=== PATIENT | female | born 1950 | race Caucasian/White ===

== ENCOUNTER → 2022-05-31 | Outpatient (CLI) | payer MEDICARE, OTHER ==
[~2022-05-31] MED LIST: ALBU.083IS IH; ALBU90OI; Bystolic2.5 MG; FEXO180 PO; HYDCHL25; HYDMOR2 PO; KETO10 PO; LEVSOD75 PO; LOSA50; METF500; PRAV10 PO; PRED20 PO; PROM25 PO; RXHYDMOR2 PO; TAMS.4ER PO; VALA500
[2022-05-31 08:45] LABS: BASOPHILS ABSOLUTE AUTO 0.04 K/mm3 (0.00-0.23); BASOPHILS PERCENT AUTO 1 % (0-2); EOSINOPHILS ABSOLUTE AUTO 0.05 K/mm3 (0.00-0.68); EOSINOPHILS PERCENT AUTO 1 % (0-6); Hematocrit 42.5 % (33.0-51.0); Hemoglobin 14.4 g/dL (11.5-16.0); IMMATURE GRAN ABSOLUTE AUTO 0.03 K/mm3 (0.00-0.10); IMMATURE GRAN PERCENT AUTO 1 % (0-1); LYMPHOCYTES PERCENT AUTO 15 % (21-46); MONOCYTES ABSOLUTE AUTO 0.73 K/mm3 (0.16-1.47); MONOCYTES PERCENT AUTO 12 % (4-13); Mean Corpuscular HGB Conc 33.9 g/dL (31.5-36.5); Mean Corpuscular Volume 86 fL (80-100); Mean Platelet Volume 9.8 fL (9.1-12.4); NEUTROPHILS ABSOLUTE AUTO 4.39 K/mm3 (1.96-9.15); NEUTROPHILS PERCENT AUTO 71 % (41-73); Platelet Count 288 K/mm3 (150-400); RDW Coefficient Variation 12.8 % (11.7-14.2); RDW Standard Deviation 40.4 fL (35.1-46.3); Red Blood Cell Count 4.96 M/mm3 (3.80-5.20); White Blood Cell Count 6.14 K/mm3 (4.00-11.30)
[2022-05-31 08:50] LABS: Bun/Creatinine Ratio 23.2 (12.0-20.0); Calcium, Blood 8.7 mg/dL (8.5-10.1); Creatinine, Blood 0.82 mg/dL (0.40-1.00); Potassium, Blood 3.7 mmol/L (3.5-5.5)
== END | disposition home or self-care (01) ==
LOC: LAB SHORT 08:41 → LAB 08:41
PROVIDERS: Physician Assistant Surgical
DX: R05.9 Cough, unspecified (principal)
CPT/HCPCS: 80048; 85025

== ENCOUNTER 2022-12-30 11:25 | Observation (INO) | payer MEDICARE, OTHER ==
[2022-12-30] VITALS (24 sets, daily range): BP systolic 120–179; BP diastolic 39–71
[~2022-12-30] VITALS: Ht 157.5 cm; Wt 110.7 kg
[~2022-12-30 11:25] MED LIST changes: -Bystolic2.5 MG; +Bystolic2.5 MG PO; -HYDCHL25; +HYDCHL25 PO; +LEVSOD100 PO; -LEVSOD75 PO; -LOSA50; +LOSA50 PO
[2022-12-30 12:00] LABS: BASOPHILS ABSOLUTE AUTO 0.05 K/mm3 (0.00-0.23); BASOPHILS PERCENT AUTO 1 % (0-2); EOSINOPHILS ABSOLUTE AUTO 0.13 K/mm3 (0.00-0.68); EOSINOPHILS PERCENT AUTO 2 % (0-6); Hematocrit 44.1 % (33.0-51.0); Hemoglobin 14.5 g/dL (11.5-16.0); IMMATURE GRAN ABSOLUTE AUTO 0.03 K/mm3 (0.00-0.10); IMMATURE GRAN PERCENT AUTO 0 % (0-1); LYMPHOCYTES ABSOLUTE AUTO 1.89 K/mm3 (0.84-5.20); LYMPHOCYTES PERCENT AUTO 22 % (21-46); MONOCYTES ABSOLUTE AUTO 0.69 K/mm3 (0.16-1.47); MONOCYTES PERCENT AUTO 8 % (4-13); Mean Corpuscular HGB 29.1 pg (26.0-34.0); Mean Corpuscular HGB Conc 32.9 g/dL (31.5-36.5); Mean Corpuscular Volume 89 fL (80-100); Mean Platelet Volume 10.3 fL (9.1-12.4); NEUTROPHILS ABSOLUTE AUTO 5.75 K/mm3 (1.96-9.15); NEUTROPHILS PERCENT AUTO 67 % (41-73); Platelet Count 339 K/mm3 (150-400); RDW Coefficient Variation 13.1 % (11.7-14.2); RDW Standard Deviation 42.6 fL (35.1-46.3); Red Blood Cell Count 4.98 M/mm3 (3.80-5.20); White Blood Cell Count 8.54 K/mm3 (4.00-11.30)
[2022-12-30 12:16] LABS: Albumin, Blood 3.4 g/dL (3.4-5.0); Albumin/Globulin Ratio 0.8 (0.8-1.8); Bilirubin, Total 0.5 mg/dL (0.1-1.0); Bun/Creatinine Ratio 14.8 (12.0-20.0); Calcium, Blood 8.9 mg/dL (8.5-10.1); Creatinine, Blood 0.81 mg/dL (0.40-1.00); Globulin, Blood 4.4 g/dL (2.2-4.0); Total Protein, Blood 7.8 g/dL (6.4-8.2)
[2022-12-30] MEDS ORDERED: ACYC400 PO (14:19)
[2022-12-30] MEDS ORDERED: ALBU90OI6 INH (14:19)
[2022-12-30] MEDS ORDERED: AIRBORNE ELDER1 EACH PO (14:20)
[2022-12-30] MEDS ORDERED: DERMACINRX FOL1 EAC2 PO (14:20)
[2022-12-30] MEDS ORDERED: UBID10 PO (14:20)
[2022-12-30] MEDS ORDERED: CLOP75 PO (14:21)
[2022-12-30] MEDS ORDERED: EZET10 PO (14:21)
--- NOTE | 2022-12-30 19:21 | NUR ---
pt arrived to floor at aprox [id number] from pacu. lap sites x's 5 with dermabond c/d/i. pt c/o nausea, medicated with 4mg zofran. pt denies pain at time of arrival
[2022-12-31 01:12] VITALS: BP 151/66
[2022-12-31 03:17] VITALS: BP 139/60
--- NOTE | 2022-12-31 04:34 | NUR ---
SHIFT SUMMARY S/P LAP ILDA. PT NAUSEATED T/O THE NIGHT. ZOFRAN/REGLAN GIVEN PER ORDERS. PT ONLY ABLE TO TOLERATE VERY SMALL AMOUNT OF ICE CHIPS AND 1-2 BITES OF JELLO. IVF INFUSING PER ORDERS. PT ABLE TO WALK INDEPENDENTLY TO RESTROOM TO VOID. LAP SITES TO ABD REMAIN CDI. TYLENOL FOR PAIN MANAGEMENT. NO EMESIS NOTED AT THIS TIME. PT USES CALL LIGHT APPROPRIATELY.
[2022-12-31 06:53] LABS: BASOPHILS ABSOLUTE AUTO 0.02 K/mm3 (0.00-0.23); BASOPHILS PERCENT AUTO 0 % (0-2); EOSINOPHILS PERCENT AUTO 0 % (0-6); Hematocrit 41.8 % (33.0-51.0); Hemoglobin 14.1 g/dL (11.5-16.0); IMMATURE GRAN ABSOLUTE AUTO 0.08 K/mm3 (0.00-0.10); IMMATURE GRAN PERCENT AUTO 1 % (0-1); LYMPHOCYTES ABSOLUTE AUTO 0.82 K/mm3 (0.84-5.20); LYMPHOCYTES PERCENT AUTO 6 % (21-46); MONOCYTES ABSOLUTE AUTO 0.53 K/mm3 (0.16-1.47); MONOCYTES PERCENT AUTO 4 % (4-13); Mean Corpuscular HGB 29.2 pg (26.0-34.0); Mean Corpuscular HGB Conc 33.7 g/dL (31.5-36.5); Mean Corpuscular Volume 87 fL (80-100); Mean Platelet Volume 10.5 fL (9.1-12.4); NEUTROPHILS ABSOLUTE AUTO 11.57 K/mm3 (1.96-9.15); NEUTROPHILS PERCENT AUTO 89 % (41-73); Platelet Count 271 K/mm3 (150-400); RDW Coefficient Variation 13.1 % (11.7-14.2); Red Blood Cell Count 4.83 M/mm3 (3.80-5.20); White Blood Cell Count 13.02 K/mm3 (4.00-11.30)
[2022-12-31 07:20] LABS: Albumin, Blood 3.2 g/dL (3.4-5.0); Albumin/Globulin Ratio 0.8 (0.8-1.8); Bilirubin, Total 0.4 mg/dL (0.1-1.0); Bun/Creatinine Ratio 17.6 (12.0-20.0); Calcium, Blood 8.3 mg/dL (8.5-10.1); Creatinine, Blood 0.8 mg/dL (0.40-1.00); Potassium, Blood 4.3 mmol/L (3.5-5.5); Total Protein, Blood 7.2 g/dL (6.4-8.2)
[2022-12-31 07:29] VITALS: BP 151/70
[2022-12-31] MEDS ORDERED: DOCU100 PO (13:42)
[2022-12-31] MEDS ORDERED: PROM25 PO (13:42)
[2022-12-31] MEDS ORDERED: ACET500 PO (13:42)
--- NOTE | 2022-12-31 14:33 | NUR ---
DISCHARGE SUMMARY POD1 LAP ILDA, Akila/OX4, VSS, TOLERATING PO, SOME NAUSEA THIS AM BUT HAS IMPROVED WITH PHENERGAN, PAIN WELL MANAGED PER PATIENT. IV ACCESS REMOVED PRIOR TO DC. DISCUSSED DISCHARGE INFORMATION WITH HER INCLUDING HOME CARE, MEDICATIONS AND FOLLOW APPOINTMENTS. NO QUESTIONS AT TIME OF DISCHARGE, ESCORTED OUT VIA WC TO PRIVATE AUTO TO GO HOME.
== END 2022-12-31 14:35 | disposition home or self-care (01) ==
LOC: ER 11:25 → SURS 11:26 → ER 13:00 → SURS 19:27
PROVIDERS: Family Medicine; Physician Assistant; Surgery; ADMIT Family Medicine
PROC: 0FT44ZZ Resection of Gallbladder, Percutaneous Endoscopic Approach (ICD-10-PCS; principal; 2022-12-30 15:00)
DX: K80.12 Calculus of gallbladder with acute and chronic cholecystitis without obstruction (principal); I10 Essential (primary) hypertension; J45.909 Unspecified asthma, uncomplicated; E78.5 Hyperlipidemia, unspecified; E03.9 Hypothyroidism, unspecified; G47.30 Sleep apnea, unspecified; E11.42 Type 2 diabetes mellitus with diabetic polyneuropathy; E66.01 Morbid (severe) obesity due to excess calories; K76.0 Fatty (change of) liver, not elsewhere classified; K42.9 Umbilical hernia without obstruction or gangrene; Z68.41 Body mass index [BMI] 40.0-44.9, adult
CPT/HCPCS: 36415; 74177; 76705; 80053; 82947; 83690; 85025; 88304; 93005; 93010; 99285-25; A9270; G0378; J0690; J1100; J1170; J2250; J2371; J2405; J2704; J2765; J3010; J7030; J7120; Q9967

== ENCOUNTER 2023-01-11 00:19 | Emergency (ER) | payer MEDICARE, OTHER ==
[~2023-01-11] VITALS: Ht 154.9 cm; Wt 109.8 kg
[~2023-01-11 00:19] MED LIST changes: +ACET500 PO; +ACYC400 PO; +AIRBORNE ELDER1 EACH PO; +ALBU90OI6 INH; +CLOP75 PO; +DERMACINRX FOL1 EAC2 PO; +DOCU100 PO; +EZET10 PO; +UBID10 PO
[2023-01-11 00:56] LABS: BASOPHILS ABSOLUTE AUTO 0.06 K/mm3 (0.00-0.23); BASOPHILS PERCENT AUTO 1 % (0-2); EOSINOPHILS ABSOLUTE AUTO 0.27 K/mm3 (0.00-0.68); EOSINOPHILS PERCENT AUTO 2 % (0-6); Hematocrit 42.7 % (33.0-51.0); Hemoglobin 14.2 g/dL (11.5-16.0); IMMATURE GRAN PERCENT AUTO 1 % (0-1); LYMPHOCYTES ABSOLUTE AUTO 2.66 K/mm3 (0.84-5.20); LYMPHOCYTES PERCENT AUTO 23 % (21-46); MONOCYTES ABSOLUTE AUTO 0.97 K/mm3 (0.16-1.47); MONOCYTES PERCENT AUTO 8 % (4-13); Mean Corpuscular HGB 29.5 pg (26.0-34.0); Mean Corpuscular HGB Conc 33.3 g/dL (31.5-36.5); Mean Corpuscular Volume 89 fL (80-100); Mean Platelet Volume 10.4 fL (9.1-12.4); NEUTROPHILS ABSOLUTE AUTO 7.57 K/mm3 (1.96-9.15); NEUTROPHILS PERCENT AUTO 65 % (41-73); Platelet Count 398 K/mm3 (150-400); RDW Standard Deviation 42.3 fL (35.1-46.3); Red Blood Cell Count 4.81 M/mm3 (3.80-5.20); White Blood Cell Count 11.63 K/mm3 (4.00-11.30)
[2023-01-11 01:31] LABS: Albumin, Blood 2.7 g/dL (3.4-5.0); Albumin/Globulin Ratio 0.7 (0.8-1.8); Bilirubin, Total 0.4 mg/dL (0.1-1.0); Calcium, Blood 8.3 mg/dL (8.5-10.1); Creatinine, Blood 0.72 mg/dL (0.40-1.00); Potassium, Blood 4.1 mmol/L (3.5-5.5); Total Protein, Blood 6.7 g/dL (6.4-8.2)
[2023-01-11] MEDS ORDERED: ACYC400 PO (03:06)
[2023-01-11] MEDS ORDERED: BENADRYL25 MG PO (03:07)
[2023-01-11] MEDS ORDERED: TRIA15CR3 TOP (03:07)
[2023-01-11 03:30] VITALS: BP 140/59
== END 2023-01-11 04:35 | disposition home or self-care (01) ==
LOC: ER 00:19
PROVIDERS: Emergency Medicine
DX: G89.18 Other acute postprocedural pain (principal); R10.13 Epigastric pain; Z88.5 Allergy status to narcotic agent; Z88.1 Allergy status to other antibiotic agents; Z79.899 Other long term (current) drug therapy; Z79.84 Long term (current) use of oral hypoglycemic drugs; I10 Essential (primary) hypertension; E11.9 Type 2 diabetes mellitus without complications; J45.909 Unspecified asthma, uncomplicated
CPT/HCPCS: 74177; 80053; 83690; 85025; 93005; 93010; 99284-25; J2270; J2405; Q9967

== ENCOUNTER 2023-01-14 14:50 | Inpatient (IN) | payer MEDICARE, OTHER ==
[~2023-01-14] VITALS: Ht 152.4 cm; Wt 109.8 kg
[~2023-01-14 14:50] MED LIST changes: +BENADRYL25 MG PO; +TRIA15CR3 TOP
[2023-01-14 15:58] LABS: BASOPHILS ABSOLUTE AUTO 0.06 K/mm3 (0.00-0.23); BASOPHILS PERCENT AUTO 1 % (0-2); EOSINOPHILS ABSOLUTE AUTO 0.13 K/mm3 (0.00-0.68); EOSINOPHILS PERCENT AUTO 1 % (0-6); Hemoglobin 14.3 g/dL (11.5-16.0); IMMATURE GRAN PERCENT AUTO 1 % (0-1); LYMPHOCYTES ABSOLUTE AUTO 1.07 K/mm3 (0.84-5.20); LYMPHOCYTES PERCENT AUTO 8 % (21-46); MONOCYTES ABSOLUTE AUTO 1.04 K/mm3 (0.16-1.47); MONOCYTES PERCENT AUTO 8 % (4-13); Mean Corpuscular HGB 28.9 pg (26.0-34.0); Mean Corpuscular HGB Conc 33.3 g/dL (31.5-36.5); Mean Corpuscular Volume 87 fL (80-100); Mean Platelet Volume 9.9 fL (9.1-12.4); NEUTROPHILS ABSOLUTE AUTO 10.27 K/mm3 (1.96-9.15); NEUTROPHILS PERCENT AUTO 81 % (41-73); Platelet Count 397 K/mm3 (150-400); RDW Coefficient Variation 13.3 % (11.7-14.2); Red Blood Cell Count 4.95 M/mm3 (3.80-5.20); White Blood Cell Count 12.67 K/mm3 (4.00-11.30)
[2023-01-14 16:18] LABS: Magnesium, Blood 2.1 mg/dL (1.6-2.4)
[2023-01-14 16:21] LABS: Albumin, Blood 3.4 g/dL (3.4-5.0); Albumin/Globulin Ratio 0.8 (0.8-1.8); Bilirubin, Total 5.1 mg/dL (0.1-1.0); Bun/Creatinine Ratio 16.5 (12.0-20.0); Calcium, Blood 9.1 mg/dL (8.5-10.1); Creatinine, Blood 0.79 mg/dL (0.40-1.00); Globulin, Blood 4.3 g/dL (2.2-4.0); Potassium, Blood 3.5 mmol/L (3.5-5.5); Total Protein, Blood 7.7 g/dL (6.4-8.2)
[2023-01-15 02:42] VITALS: BP 139/66
[2023-01-15 04:56] LABS: BASOPHILS ABSOLUTE AUTO 0.05 K/mm3 (0.00-0.23); BASOPHILS PERCENT AUTO 1 % (0-2); EOSINOPHILS ABSOLUTE AUTO 0.39 K/mm3 (0.00-0.68); EOSINOPHILS PERCENT AUTO 4 % (0-6); Hematocrit 38.7 % (33.0-51.0); Hemoglobin 12.6 g/dL (11.5-16.0); IMMATURE GRAN ABSOLUTE AUTO 0.09 K/mm3 (0.00-0.10); IMMATURE GRAN PERCENT AUTO 1 % (0-1); LYMPHOCYTES ABSOLUTE AUTO 1.58 K/mm3 (0.84-5.20); LYMPHOCYTES PERCENT AUTO 18 % (21-46); MONOCYTES PERCENT AUTO 10 % (4-13); Mean Corpuscular HGB 28.8 pg (26.0-34.0); Mean Corpuscular HGB Conc 32.6 g/dL (31.5-36.5); Mean Corpuscular Volume 89 fL (80-100); Mean Platelet Volume 10.1 fL (9.1-12.4); NEUTROPHILS ABSOLUTE AUTO 5.84 K/mm3 (1.96-9.15); NEUTROPHILS PERCENT AUTO 66 % (41-73); Platelet Count 324 K/mm3 (150-400); RDW Coefficient Variation 13.6 % (11.7-14.2); RDW Standard Deviation 44.1 fL (35.1-46.3); Red Blood Cell Count 4.37 M/mm3 (3.80-5.20); White Blood Cell Count 8.85 K/mm3 (4.00-11.30)
[2023-01-15 05:06] VITALS: BP 129/84
[2023-01-15 05:25] LABS: Albumin, Blood 2.7 g/dL (3.4-5.0); Albumin/Globulin Ratio 0.7 (0.8-1.8); Bilirubin, Total 4.3 mg/dL (0.1-1.0); Bun/Creatinine Ratio 16.2 (12.0-20.0); Calcium, Blood 8.4 mg/dL (8.5-10.1); Creatinine, Blood 1.05 mg/dL (0.40-1.00); Globulin, Blood 3.9 g/dL (2.2-4.0); Potassium, Blood 3.3 mmol/L (3.5-5.5); Total Protein, Blood 6.6 g/dL (6.4-8.2)
--- NOTE | 2023-01-15 06:08 | NUR ---
Shift Summary Pt admitted from ER with acute pancreatitis and possible billary obstruction. While on this unit pt states she has very little pain and very mild nausea, she has not requested medication for either. She is AOx4, independent in the room, cooperative. She has DM2 and has not eaten since 1800 on 01/13. She has DM2, I took her blood sugar at 0300 and it was 84. She is rcving NS @ 75 and got one dose of IV Rocephin on the floor. She slept well t/o the night.
[2023-01-15 08:10] VITALS: BP 136/59
--- NOTE | 2023-01-15 17:24 | NUR ---
SHIFT SUMMARY PATIENT INDEPENDENT IN THE ROOM. PATIENT CONTINUES TO HAVE ABDOMINAL PAIN/CRAMPING ESPECIALLY AFTER SHE EATS OR DRINKS ANYTHING. PATIENT WENT TO MRI FOR SCAN. IV POTASSIUM GIVEN. PO POTASSIUM CANCELLED BECAUSE OF CONTINUED NAUSEA AND PAIN. PATIENT MEDICATED FOR NAUSEA AND PAIN PER MAR. ABD SURGICAL INCISIONS HEALING. EDUCATION PROVIDED RELATED TO DIET, AND NON PHARMACOLOGICAL ITEMS FOR PAIN.
[2023-01-15 19:16] VITALS: BP 153/62
--- NOTE | 2023-01-16 04:21 | NUR ---
SHIFT SUMMARY; NO ACUTE CHANGES OVERNIGHT. THE PT IS AXO X4 AND INDEPENDENT IN THE ROOM. THE PT HAS BEEN RESTING IN BED FOR THE DURATION OF THE NIGHT. THE PT DENIES ANY SOB, CHEST PAIN/PRESSURE, N/V AND OR PAIN. PT ATE 2 JELLOS W/ OUT ANY NAUSEA. TOLERATED WELL. TELE IS IN PLACE SINUS TAMERA IN THE 50'S. CURRENTLY THE PT IS SLEEPING IN BED WITH THE BED IN THE LOWEST POSITION AND THE CALL LIGHT AT BEDSIDE. FIRE EDUCATION PROVIDED AND IGNITION RISK ASSESSED.
[2023-01-16 04:39] VITALS: BP 181/70
[2023-01-16 05:27] VITALS: BP 158/94
[2023-01-16 05:31] LABS: BASOPHILS ABSOLUTE AUTO 0.05 K/mm3 (0.00-0.23); BASOPHILS PERCENT AUTO 1 % (0-2); EOSINOPHILS ABSOLUTE AUTO 0.44 K/mm3 (0.00-0.68); EOSINOPHILS PERCENT AUTO 6 % (0-6); Hematocrit 36.2 % (33.0-51.0); IMMATURE GRAN ABSOLUTE AUTO 0.06 K/mm3 (0.00-0.10); IMMATURE GRAN PERCENT AUTO 1 % (0-1); LYMPHOCYTES ABSOLUTE AUTO 1.43 K/mm3 (0.84-5.20); LYMPHOCYTES PERCENT AUTO 19 % (21-46); MONOCYTES ABSOLUTE AUTO 0.79 K/mm3 (0.16-1.47); MONOCYTES PERCENT AUTO 10 % (4-13); Mean Corpuscular HGB 29.8 pg (26.0-34.0); Mean Corpuscular HGB Conc 33.1 g/dL (31.5-36.5); Mean Corpuscular Volume 90 fL (80-100); Mean Platelet Volume 10.2 fL (9.1-12.4); NEUTROPHILS ABSOLUTE AUTO 4.94 K/mm3 (1.96-9.15); NEUTROPHILS PERCENT AUTO 64 % (41-73); Platelet Count 295 K/mm3 (150-400); RDW Coefficient Variation 13.8 % (11.7-14.2); RDW Standard Deviation 45.3 fL (35.1-46.3); Red Blood Cell Count 4.03 M/mm3 (3.80-5.20); White Blood Cell Count 7.71 K/mm3 (4.00-11.30)
[2023-01-16 06:00] LABS: Albumin, Blood 2.6 g/dL (3.4-5.0); Albumin/Globulin Ratio 0.7 (0.8-1.8); Bilirubin, Total 1.1 mg/dL (0.1-1.0); Bun/Creatinine Ratio 17.9 (12.0-20.0); Calcium, Blood 7.9 mg/dL (8.5-10.1); Creatinine, Blood 0.95 mg/dL (0.40-1.00); Globulin, Blood 3.8 g/dL (2.2-4.0); Potassium, Blood 3.8 mmol/L (3.5-5.5); Total Protein, Blood 6.4 g/dL (6.4-8.2)
[2023-01-16 07:42] VITALS: BP 184/73
[2023-01-16 16:07] VITALS: BP 146/62
--- NOTE | 2023-01-16 16:47 | NUR ---
SHIFT SUMMARY PATIENT CONTINUES TO HAVE EPISODES OF SPASMS AND BLOATING WITH EATING AND DRINKING. PATIENT STATES SPASMS GREATLY IMPROVED FROM YESTERDAY. PATIENT USING HEATING PAD FOR COMFORT. PATIENT ADVANCED TO FULL LIQUID DIET AND EATING SMALL AMOUNTS AT A TIME. PATIENT RELUCTANT TO TAKE PAIN MEDICATION INCLUDING TORADOL TODAY. PATIENT INDEPENDENT IN THE ROOM. PATIENT HAD A SMALL SEMI FORMED BROWN BOWEL MOVEMENT. IV FLUIDS OFF AT THIS TIME AND PATIENT INCOURAGED TO DRINK FLUIDS.
[2023-01-16 19:15] VITALS: BP 138/61
[2023-01-17 04:27] VITALS: BP 169/64
--- NOTE | 2023-01-17 04:36 | NUR ---
SHIFT SUMMARY; NO ACUTE CHANGES OVERNIGHT. THE PT IS AXO X4 AND INDEPENDENT IN THE ROOM. THE PT HAS BEEN SLEEPING FOR THE MAJORITY OF THE NIGHT. THE PT HAS NOT ENDORSED ANY ABDOMINAL PAIN THIS EVENING, SHE DOES HOWEVER ENDORSE ABD DISCOMFORT THAT WAXES AND WANES. THE PT DENIES ANYS SOB, CHEST PAIN/PRESSURE, N/V AND PAIN THIS EVENING. CURRENTLY THE PT IS SLEEPING IN BED WITH THE BED IN THE LOWEST POSITION AND THE CALL LIGHT AT BEDSIDE. FIRE SAFETY ROUNDS COMPLETED.
[2023-01-17 04:57] LABS: BASOPHILS ABSOLUTE AUTO 0.07 K/mm3 (0.00-0.23); BASOPHILS PERCENT AUTO 1 % (0-2); EOSINOPHILS ABSOLUTE AUTO 0.41 K/mm3 (0.00-0.68); EOSINOPHILS PERCENT AUTO 5 % (0-6); Hematocrit 37.7 % (33.0-51.0); Hemoglobin 12.4 g/dL (11.5-16.0); IMMATURE GRAN ABSOLUTE AUTO 0.07 K/mm3 (0.00-0.10); IMMATURE GRAN PERCENT AUTO 1 % (0-1); LYMPHOCYTES ABSOLUTE AUTO 1.53 K/mm3 (0.84-5.20); LYMPHOCYTES PERCENT AUTO 19 % (21-46); MONOCYTES PERCENT AUTO 9 % (4-13); Mean Corpuscular HGB 29.2 pg (26.0-34.0); Mean Corpuscular HGB Conc 32.9 g/dL (31.5-36.5); Mean Corpuscular Volume 89 fL (80-100); Mean Platelet Volume 10.1 fL (9.1-12.4); NEUTROPHILS ABSOLUTE AUTO 5.13 K/mm3 (1.96-9.15); NEUTROPHILS PERCENT AUTO 65 % (41-73); Platelet Count 314 K/mm3 (150-400); RDW Coefficient Variation 13.6 % (11.7-14.2); RDW Standard Deviation 44.1 fL (35.1-46.3); Red Blood Cell Count 4.25 M/mm3 (3.80-5.20); White Blood Cell Count 7.91 K/mm3 (4.00-11.30)
[2023-01-17 05:35] LABS: Albumin, Blood 2.8 g/dL (3.4-5.0); Albumin/Globulin Ratio 0.8 (0.8-1.8); Bilirubin, Total 0.9 mg/dL (0.1-1.0); Bun/Creatinine Ratio 14.5 (12.0-20.0); Calcium, Blood 8.8 mg/dL (8.5-10.1); Creatinine, Blood 0.76 mg/dL (0.40-1.00); Globulin, Blood 3.7 g/dL (2.2-4.0); Potassium, Blood 3.8 mmol/L (3.5-5.5); Total Protein, Blood 6.5 g/dL (6.4-8.2)
[2023-01-17 08:09] VITALS: BP 175/68
[2023-01-17] MEDS ORDERED: DOCUZEN 8.6-501 EACH PO (13:09)
[2023-01-17] MEDS ORDERED: ONDA4 PO (13:10)
[2023-01-17] MEDS ORDERED: LACT PO (13:10)
[2023-01-17] MEDS ORDERED: MIRALAX17 GM PO (13:10)
[2023-01-17] MEDS ORDERED: TRAM50 PO (13:11)
--- NOTE | 2023-01-17 16:28 | NUR ---
SHIFT SUMMARY AND DISCHARGE PATIENT INDEPENDENT IN THE ROOM. PATIENT CONTINUES TO HAVE EPISODES OF CRAMPING PAIN WITH EATING AND DRINKING. PATIENT STATES THAT IT IS MUCH MILDER THAN IT HAS BEEN. PATIENT DECLINING ANY PAIN MEDICATIONS AT THIS TIME. CONTINUE TO PROVIDE EDUCATION RELATED TO PANCREATITIS. DISCHARGE INSTRUCTIONS REVIEWED WITH PATIENT. IV DC'D ROOM CHECK DONE PRIOR TO DEPARTURE. FAMILY TRANSPORTED PATIENT OUT VIA WHEELCHAIR.
== END 2023-01-17 15:23 | disposition home or self-care (01) | DRG 439 ==
LOC: ER 14:50 → MEDS 22:38
PROVIDERS: Family Medicine; Physician Assistant; ADMIT Internal Medicine
DX: K85.90 Acute pancreatitis without necrosis or infection, unspecified (principal); Z68.42 Body mass index [BMI] 45.0-49.9, adult; R74.8 Abnormal levels of other serum enzymes; J45.909 Unspecified asthma, uncomplicated; I10 Essential (primary) hypertension; E78.5 Hyperlipidemia, unspecified; E03.9 Hypothyroidism, unspecified; E66.9 Obesity, unspecified; E11.51 Type 2 diabetes mellitus with diabetic peripheral angiopathy without gangrene; G47.30 Sleep apnea, unspecified; E11.40 Type 2 diabetes mellitus with diabetic neuropathy, unspecified; Z90.49 Acquired absence of other specified parts of digestive tract; Z79.899 Other long term (current) drug therapy; Z79.02 Long term (current) use of antithrombotics/antiplatelets; Z79.51 Long term (current) use of inhaled steroids; Z79.84 Long term (current) use of oral hypoglycemic drugs; Z88.5 Allergy status to narcotic agent; Z88.1 Allergy status to other antibiotic agents
CPT/HCPCS: 36415; 74181; 76705; 80053; 82947; 83690; 83735; 84100; 85025; 94760; 96361; 96365; 96375; 99285-25; A9270; J0696; J1650; J1885; J2060; J2405; J2543; J3480; J7030; J7050; Q2036